=== PATIENT | female | born 1940 | race Caucasian/White ===

== ENCOUNTER 2017-04-13 20:10 | Inpatient (IN) | payer OTHER ==
[~2017-04-13] VITALS: Ht 160 cm; Wt 69.3 kg
[~2017-04-13 20:10] MED LIST: CELEBREX200 MG PO; Cymbalta PO; EXCEDRIN EXTRA1 EACH PO; Ecotrin PO; Levothroid,Synthroid PO; NORVASC5 MG PO; Norvasc PO; PRILOSEC40 MG PO; SYNTHROID100 MCG PO; SYNTHROID88 MCG PO; THERAGRAN1 TABLET PO; TYLENOL EXTRA500 MG PO; Tums PO; Ultram PO; ZETIA10 MG PO; ZOFRAN4 MG PO
[2017-04-13 21:05] LABS: MCH 30.7 PG (29.0-34.0); MCHC 33.5 G/DL (30.0-36.0); MCV 91.6 FL (83-99); MEAN PLAT.VOLUME 9.5 uM^3 (9.5-12.4); PLATELET COUNT 388 K/uL (156-360); RBC DIS.WIDTH-CV 13.3 % (11.8-14.6); RBC DIS.WIDTH-SD 44.3 % (39-53); RED BLOOD COUNT 4.04 M/uL (3.80-5.20); WHITE BLOOD COUNT 11.4 K/uL (4.1-10.2)
[2017-04-13 21:13] LABS: CHLORIDE 101 mEq/L (99-109); POTASSIUM 3.9 mEq/L (3.7-5.4); SODIUM 137 mEq/L (136-147)
[2017-04-13 21:15] LABS: GLUCOSE 122 mg/dL (70-99)
[2017-04-13 21:16] LABS: ANION GAP 11 MEQ/L (2-14)
[2017-04-13 21:17] LABS: TOTAL BILIRUBIN 0.4 mg/dL (0.0-1.0)
[2017-04-13 21:17] LABS: ADD MIUA? NO; BILIRUBIN NEGATIVE; BLOOD NEGATIVE; COLOR STRAW ((YELLOW)); GLUCOSE (STRIP) NEGATIVE; KETONES NEGATIVE; LEUKOCYTES NEGATIVE; NITRITE NEGATIVE; PROTEIN (STRIP) NEGATIVE; SPECIFIC GRAVITY 1.004 (1.000-1.030); UROBILINOGEN 0.2 MG/DL (0.2-1.0)
[2017-04-13 21:18] LABS: SERUM ETHYL ALCOHOL < 10 mg/dL
[2017-04-13 21:19] LABS: ALKALINE PHOSPHATASE 70 IU/L (3-129); GFR ESTIMATE (CALCULATED) 57 mL/min/
[2017-04-13 21:20] LABS: UREA NITROGEN (BUN) 11 mg/dL (9-23)
[2017-04-13 21:25] LABS: AMPHETAMINE NEGATIVE (500 ng/mL); BARBITURATES NEGATIVE (200 ng/mL); BENZODIAZEPINES NEGATIVE (150 ng/mL); COCAINE NEGATIVE (150 ng/mL); INTERNAL CONTROLS VALID? YES; METHADONE NEGATIVE (200 ng/mL); METHAMPHETAMINE NEGATIVE (500 ng/mL); OPIATES (MORPHINE) NEGATIVE (100 ng/mL); OXYCODONE NEGATIVE (100 ng/mL); PHENCYCLIDINE NEGATIVE (25 ng/mL); PROPOXYPHENE NEGATIVE (300 ng/mL); THC CANNABINOIDS NEGATIVE (50 ng/mL); TRICYCLIC ANTIDEPRESSANTS NEGATIVE (300 ng/mL)
[2017-04-13] MEDS ORDERED: CIPROFLOXACIN250 MG PO (23:03)
[2017-04-13] MEDS ORDERED: MIRTAZAPINE30 MG PO (23:03)
[2017-04-14 07:40] VITALS: BP 180/89
[2017-04-15 07:49] VITALS: BP 168/80
[2017-04-15 11:50] VITALS: BP 176/79
[2017-04-15 15:38] VITALS: BP 148/70
[2017-04-15 21:45] VITALS: BP 151/72
[2017-04-16 07:21] VITALS: BP 150/67
[2017-04-16 10:27] VITALS: BP 121/59
[2017-04-16 15:14] VITALS: BP 137/83
[2017-04-17 07:25] VITALS: BP 157/81
[2017-04-17 11:22] VITALS: BP 138/69
[2017-04-17 16:25] VITALS: BP 160/72
[2017-04-18 07:57] VITALS: BP 148/78
[2017-04-18 13:26] LABS: ADD MIUA? YES; BILIRUBIN NEGATIVE; BLOOD NEGATIVE; COLOR YELLOW ((YELLOW)); GLUCOSE (STRIP) NEGATIVE; KETONES NEGATIVE; LEUKOCYTES SMALL; NITRITE NEGATIVE; PROTEIN (STRIP) NEGATIVE; SPECIFIC GRAVITY 1.008 (1.000-1.030); UROBILINOGEN 0.2 MG/DL (0.2-1.0)
[2017-04-18 13:42] LABS: BACTERIA RARE /HPF; EPITHELIAL CELLS RARE /HPF; MUCUS TRACE /LPF; UCUL ADDED? NO
[2017-04-18 15:51] VITALS: BP 138/75
[2017-04-19 07:43] VITALS: BP 144/92
[2017-04-19 15:26] VITALS: BP 173/81
[2017-04-20 07:36] LABS: EOSINOPHIL (%) 1.7 % (0-5); EOSINOPHIL COUNT 0.1 K/uL (0-0.3); HEMATOCRIT 37.7 % (36.0-46.0); IMMATURE GRANULOCYTE (%) 0.3 % (0.0-0.7); INSTRUMENT ABS NEUTROPHIL CT 5.8 K/uL; LYMPHOCYTE COUNT 1.2 K/uL (1.0-2.8); MCH 31.8 PG (29.0-34.0); MCHC 33.7 G/DL (30.0-36.0); MCV 94.3 FL (83-99); MEAN PLAT.VOLUME 10.3 uM^3 (9.5-12.4); MONOCYTE COUNT 0.5 K/uL (0-0.8); NEUTROPHIL (%) 75.5 % (45-76); NEUTROPHIL COUNT 5.8 K/uL (1.8-6.4); PLATELET COUNT 340 K/uL (156-360); RBC DIS.WIDTH-CV 13.2 % (11.8-14.6); RBC DIS.WIDTH-SD 45.8 % (39-53); WHITE BLOOD COUNT 7.6 K/uL (4.1-10.2)
[2017-04-20 07:50] VITALS: BP 135/67
[2017-04-20 07:54] LABS: ANION GAP 12 MEQ/L (2-14); CHLORIDE 105 MEQ/L (99-109); GFR ESTIMATE (CALCULATED) > 59 mL/min/; GLUCOSE 106 mg/dL (70-99); POTASSIUM 4.1 MEQ/L (3.7-5.4); SAMPLE HEMOLYSIS CHECK 0; SAMPLE ICTERIC CHECK 0; SAMPLE LIPEMIA CHECK 0; SODIUM 142 MEQ/L (136-147); UREA NITROGEN (BUN) 17 mg/dL (9-23)
[2017-04-20 15:40] VITALS: BP 154/74
[2017-04-21 07:05] VITALS: BP 137/71
[2017-04-21 15:38] VITALS: BP 142/78
[2017-04-22 07:23] VITALS: BP 127/73
[2017-04-22 15:36] VITALS: BP 132/60
[2017-04-23 07:29] VITALS: BP 115/56
[2017-04-23 15:20] VITALS: BP 117/62
[2017-04-24 07:25] VITALS: BP 105/51
[2017-04-24 13:13] VITALS: BP 119/56
[2017-04-24 15:22] VITALS: BP 139/65
[2017-04-25 07:31] VITALS: BP 137/62
[2017-04-25 15:34] VITALS: BP 150/66
[2017-04-26 07:36] VITALS: BP 138/67
[2017-04-26 15:25] VITALS: BP 141/71
[2017-04-26 21:26] VITALS: BP 141/66
[2017-04-27 07:50] VITALS: BP 142/67
[2017-04-27 15:40] VITALS: BP 131/82
[2017-04-28 07:30] VITALS: BP 136/70
[2017-04-28 15:45] VITALS: BP 142/67
[2017-04-29 07:49] VITALS: BP 112/56
[2017-04-29 16:03] VITALS: BP 143/63
[2017-04-30 07:53] VITALS: BP 121/56
[2017-04-30 15:40] VITALS: BP 106/55
[2017-05-01 07:59] VITALS: BP 146/69
[2017-05-01 15:37] VITALS: BP 133/58
[2017-05-02 07:44] VITALS: BP 106/52
[2017-05-02 15:49] VITALS: BP 135/63
[2017-05-03 07:38] VITALS: BP 126/61
[2017-05-03 15:17] VITALS: BP 127/65
[2017-05-04 07:48] VITALS: BP 102/58
[2017-05-04] MEDS ORDERED: ZOLOFT100 MG PO (10:14)
[2017-05-04] MEDS ORDERED: SEROQUEL100 MG PO (10:14)
[2017-05-04] MEDS ORDERED: SYNTHROID100 MCG PO (10:14)
== END 2017-05-04 10:49 | disposition home or self-care (01) | DRG 885 ==
LOC: EME 20:10 → 1WEST 22:35 → EDOF 22:35 → 1WEST 04-14 00:06
PROVIDERS: Emergency Medicine; Psychiatry & Neurology Psychiatry
DX: F33.3 Major depressive disorder, recurrent, severe with psychotic symptoms (principal); G31.84 Mild cognitive impairment of uncertain or unknown etiology; E07.89 Other specified disorders of thyroid; E89.0 Postprocedural hypothyroidism; R10.32 Left lower quadrant pain; K59.00 Constipation, unspecified; K57.90 Diverticulosis of intestine, part unspecified, without perforation or abscess without bleeding; R63.0 Anorexia; I10 Essential (primary) hypertension; E78.5 Hyperlipidemia, unspecified; K21.9 Gastro-esophageal reflux disease without esophagitis; G47.00 Insomnia, unspecified; M19.90 Unspecified osteoarthritis, unspecified site; Z87.19 Personal history of other diseases of the digestive system; Z60.2 Problems related to living alone
CPT/HCPCS: 70450; 80048; 80053; 81003; 82607; 82746; 84443; 85025; 85027; 87086; 90839; 93005; 97150 GO; 97166 GO; 97530 GO; 99281; 99285; G0480

== ENCOUNTER 2018-02-07 10:27 | Emergency (ER) | payer OTHER ==
[~2018-02-07] VITALS: Ht 160 cm; Wt 68.2 kg
[~2018-02-07 10:27] MED LIST changes: +CIPROFLOXACIN250 MG PO; +MIRTAZAPINE30 MG PO; +SEROQUEL100 MG PO; +ZOLOFT100 MG PO
[2018-02-07 12:25] LABS: APPEARANCE CLEAR ((CLEAR)); BILIRUBIN NEGATIVE; BLOOD NEGATIVE; COLOR STRAW ((YELLOW)); GLUCOSE (STRIP) NEGATIVE; KETONES NEGATIVE; LEUKOCYTES NEGATIVE; NITRITE NEGATIVE; PROTEIN (STRIP) NEGATIVE; SPECIFIC GRAVITY 1.004 (1.000-1.030); UCUL ADDED? NO; UROBILINOGEN 0.2 MG/DL (0.2-1.0)
[2018-02-07] MEDS ORDERED: MEDROL DOSEPAK4 MG PO (13:04)
[2018-02-07] MEDS ORDERED: FLEXERIL10 MG PO (13:04)
[2018-02-07 13:17] VITALS: BP 126/73
== END 2018-02-07 13:20 | disposition home or self-care (01) ==
LOC: EME 10:27
PROVIDERS: Physician Assistant
DX: M54.31 Sciatica, right side (principal); F32.9 Major depressive disorder, single episode, unspecified; E78.5 Hyperlipidemia, unspecified; I10 Essential (primary) hypertension; K21.9 Gastro-esophageal reflux disease without esophagitis; Z88.5 Allergy status to narcotic agent
CPT/HCPCS: 72100; 81003; 99281; 99283

== ENCOUNTER 2018-03-14 13:57 | Emergency (ER) | payer OTHER ==
[~2018-03-14] VITALS: Ht 160 cm; Wt 70.1 kg
[~2018-03-14 13:57] MED LIST changes: +FLEXERIL10 MG PO; +MEDROL DOSEPAK4 MG PO
[2018-03-14 16:00] LABS: HEMATOCRIT 34.8 % (36.0-46.0); MCH 31.9 PG (29.0-34.0); MCHC 34.5 G/DL (30.0-36.0); MCV 92.6 FL (83-99); PLATELET COUNT 437 K/uL (156-360); RBC DIS.WIDTH-CV 13.2 % (11.8-14.6); RBC DIS.WIDTH-SD 44.4 % (39-53); RED BLOOD COUNT 3.76 M/uL (3.80-5.20); WHITE BLOOD COUNT 8.1 K/uL (4.1-10.2)
[2018-03-14] MEDS ORDERED: NORCO 5/3251 TABLET PO (16:09)
[2018-03-14 16:12] LABS: CHLORIDE 99 mEq/L (99-109); POTASSIUM 4.3 mEq/L (3.7-5.4); SODIUM 135 mEq/L (136-147)
[2018-03-14 16:13] LABS: GLUCOSE 107 mg/dL (70-99)
[2018-03-14 16:17] LABS: CREATININE 0.7 mg/dL (0.6-1.3); GFR ESTIMATE (CALCULATED) > 59 mL/min/
[2018-03-14 16:18] LABS: UREA NITROGEN (BUN) 7 mg/dL (9-23)
[2018-03-14 17:13] VITALS: BP 176/86
== END 2018-03-14 17:13 | disposition home or self-care (01) ==
LOC: EME 13:57
PROVIDERS: Physician Assistant
DX: S22.080A Wedge compression fracture of T11-T12 vertebra, initial encounter for closed fracture (principal); X50.0XXA Overexertion from strenuous movement or load, initial encounter; Y92.512 Supermarket, store or market as the place of occurrence of the external cause; M81.0 Age-related osteoporosis without current pathological fracture; M41.9 Scoliosis, unspecified; K21.9 Gastro-esophageal reflux disease without esophagitis; I10 Essential (primary) hypertension; E78.5 Hyperlipidemia, unspecified; F41.9 Anxiety disorder, unspecified; F32.9 Major depressive disorder, single episode, unspecified; Z87.440 Personal history of urinary (tract) infections; Z96.652 Presence of left artificial knee joint; Z88.5 Allergy status to narcotic agent; Z88.8 Allergy status to other drugs, medicaments and biological substances
CPT/HCPCS: 71046; 72100; 80048; 85027; 99281; 99283

== ENCOUNTER 2018-03-27 18:02 | Emergency (ER) | payer OTHER ==
[~2018-03-27] VITALS: Ht 160 cm; Wt 68.6 kg
[~2018-03-27 18:02] MED LIST changes: +CENTRAVITES 501 EACH PO; +NORCO 5/3251 TABLET PO; -THERAGRAN1 TABLET PO
[2018-03-27 18:35] LABS: HEMATOCRIT 35.3 % (36.0-46.0); HEMOGLOBIN 11.8 G/DL (11.9-15.5); MCH 30.8 PG (29.0-34.0); MCHC 33.4 G/DL (30.0-36.0); MCV 92.2 FL (83-99); PLATELET COUNT 437 K/uL (156-360); RBC DIS.WIDTH-CV 13.1 % (11.8-14.6); RBC DIS.WIDTH-SD 43.8 % (39-53); RED BLOOD COUNT 3.83 M/uL (3.80-5.20); WHITE BLOOD COUNT 7.3 K/uL (4.1-10.2)
[2018-03-27 18:44] LABS: CHLORIDE 99 mEq/L (99-109); POTASSIUM 4.7 mEq/L (3.7-5.4); SODIUM 134 mEq/L (136-147)
[2018-03-27 18:45] LABS: GLUCOSE 101 mg/dL (70-99)
[2018-03-27 18:49] LABS: CREATININE 0.7 mg/dL (0.6-1.3); GFR ESTIMATE (CALCULATED) > 59 mL/min/
[2018-03-27 18:50] LABS: UREA NITROGEN (BUN) 11 mg/dL (9-23)
[2018-03-27 18:54] LABS: TROP-I INTERPRETATION NEGATIVE; TROPONIN-I < 0.01 ng/mL (0.0-0.30)
[2018-03-27 19:31] LABS: ALBUMIN 3.9 g/dL (3.2-4.8)
[2018-03-27 19:33] LABS: TOTAL PROTEIN 7.2 g/dL (6.4-8.3)
[2018-03-27 19:35] LABS: TOTAL BILIRUBIN 0.3 mg/dL (0.0-1.0)
[2018-03-27 19:36] LABS: ALKALINE PHOSPHATASE 130 IU/L (3-129)
[2018-03-27 19:39] LABS: ALT (GPT) 10 IU/L (3-49); AST (GOT) 17 IU/L (2-34); DIRECT BILIRUBIN 0.1 mg/dL (0.0-0.3)
[2018-03-27 19:40] LABS: LIPASE 24 U/L (1.0-51.0)
[2018-03-27] MEDS ORDERED: SYNTHROID100 MCG PO (22:42)
[2018-03-27] MEDS ORDERED: SEROQUEL100 MG PO (22:43)
[2018-03-27] MEDS ORDERED: ZOLOFT50 MG PO (22:44)
[2018-03-27] MEDS ORDERED: TYLENOL REGULA325 MG PO (22:45)
[2018-03-27] MEDS ORDERED: LIORESAL10 MG PO (22:45)
[2018-03-27 22:49] LABS: TROP-I INTERPRETATION NEGATIVE; TROPONIN-I < 0.01 ng/mL (0.0-0.30)
[2018-03-27] MEDS ORDERED: NEURONTIN300 MG PO (23:34)
[2018-03-27 23:45] LABS: APPEARANCE CLEAR ((CLEAR)); BILIRUBIN NEGATIVE; BLOOD NEGATIVE; COLOR STRAW ((YELLOW)); GLUCOSE (STRIP) NEGATIVE; KETONES 5; LEUKOCYTES NEGATIVE; NITRITE NEGATIVE; PROTEIN (STRIP) NEGATIVE; SPECIFIC GRAVITY 1.041 (1.000-1.030); UCUL ADDED? NO; UROBILINOGEN 0.2 MG/DL (0.2-1.0)
[2018-03-28 00:04] VITALS: BP 174/90
== END 2018-03-28 00:19 | disposition home or self-care (01) ==
LOC: EME 18:02
PROVIDERS: Physician Assistant
DX: M48.54XA Collapsed vertebra, not elsewhere classified, thoracic region, initial encounter for fracture (principal); R07.9 Chest pain, unspecified; R10.12 Left upper quadrant pain; R20.2 Paresthesia of skin; R14.0 Abdominal distension (gaseous); R91.1 Solitary pulmonary nodule; K57.30 Diverticulosis of large intestine without perforation or abscess without bleeding; I10 Essential (primary) hypertension
CPT/HCPCS: 71046; 74177; 80048; 80076; 81003; 83690; 84484; 85027; 93005; 99281; 99284; J7030